=== PATIENT | male | born 1950 | race Caucasian/White ===

== ENCOUNTER 2019-04-19 11:39 | Observation (INO) ==
[2019-04-19 12:51] LABS: Apearance,Urine CLEAR (Clear); Basophils % 0.4 % (0.0-0.8); Bilirubin,Urine Negative (Negative); Blood, Urine Moderate mg/dL (Negative); Eosinophils # 0.1 10*3/uL (0.0-0.87); Glucose,Urine (UA) Negative (Negative); Hematocrit 40.5 VOL% (42.0-52.0); Hemoglobin 13.5 GM/DL (14.0-18.0); Immature Granulocytes % 0.3 %; Immature Granulocytes Absolute 0.02 #; Ketones,Urine Negative (Negative); Lymphocytes # 1.6 10*3/uL (1.4-4.0); Mean Corpuscular HGB Conc 33.3 GM/DL (32-36); Mean Corpuscular Volume 92.3 FL (87-102); Mean Platelet Volume 11.9 FL (9.6-12.0); Monocytes % 7.3 % (1.7-12.7); Mucus,Urine Occasional /LPF (Occasional); Nitrite,Urine Negative (Negative); Platelet Count 124 T/CUMM (130-400); Protein,Urine Negative; RBC,Urine 4 /HPF (0-4); Red Blood Count 4.39 MC/CUMM (3.8-5.5); Red Cell Distribution Width 12.1 % (9.3-17.3); Urine Color Yellow (Yellow); Urine Specific Gravity 1.011 (1.001-1.035); Urine Urobilinogen < 2.0 EU/DL (0.2-1.0); WBC,Urine <1 /HPF (0-6); White Blood Count 6.8 T/CUMM (4-12)
[2019-04-19 12:59] LABS: INR 0.9
[2019-04-19 13:21] LABS: Albumin 3.6 G/DL (3.4-5.0); Bilirubin,Total 0.7 MG/DL (0.2-1.0); Calcium 9.1 MG/DL (8.5-10.1); Osmolality,Calculated 279.4 MOS/KG (273-304)
[2019-04-19] MEDS ORDERED: NITROGLYCERIN 2% OINT 1 INCH/GM PACK TOP STA (14:55)
[2019-04-19] MEDS ORDERED: MORPHINE 4 MG/1 ML VIAL IV STA (14:55)
[2019-04-19] MEDS ORDERED: ASPIRIN 325 MG TABLET PO STA (14:55)
[2019-04-19] MEDS ORDERED: NITROGLYCERIN SL 0.4 MG TABLET SL PRN (14:55)
[2019-04-19] MEDS ORDERED: MAGNESIUM SULF RIDER 2 GM in PREMIX 1 EACH IV PRN (16:16)
[2019-04-19] MEDS ORDERED: ZALEPLON 5 MG CAPSULE PO PRN (16:16)
[2019-04-19] MEDS ORDERED: DEXTROSE 10% 250 ML BAG IV PRN (16:16)
[2019-04-19] MEDS ORDERED: ONDANSETRON 4 MG/2 ML VIAL IV PRN (16:16)
[2019-04-19] MEDS ORDERED: MAGNESIUM SULF RIDER 4 GM in PREMIX 1 EACH IV PRN (16:16)
[2019-04-19] MEDS ORDERED: MORPHINE 4 MG/1 ML VIAL IV PRN (16:16)
[2019-04-19] MEDS ORDERED: GLUCAGON 1 MG VIAL IM PRN (16:16)
[2019-04-19] MEDS ORDERED: DOCUSATE SODIUM 100 MG CAPSULE PO PRN (16:16)
[2019-04-19] MEDS ORDERED: oxyCODONE/ACETAMINOPHEN 5-325 MG TABLET PO PRN (16:46)
[2019-04-19] MEDS: INSULIN LISPRO 100 UNIT/ML SUBCUT SCH ×2 (17:33→21:30)
[2019-04-19] MEDS ORDERED: INFLUENZA VIRUS VACCINE 0.5 ML SYRINGE IM ONE (17:45)
[2019-04-19] MEDS: SODIUM CHLORIDE 0.45% 1,000 ML IV SCH (18:06)
[2019-04-19] MEDS: ENOXAPARIN 80 MG/0.8 ML SYRINGE SUBCUT SCH (18:07)
[2019-04-19] MEDS ORDERED: carvediloL 12.5 MG TABLET PO SCH (19:00)
[2019-04-19] MEDS ORDERED: SERTRALINE 100 MG TABLET PO SCH (21:00)
[2019-04-19] MEDS ORDERED: MONTELUKAST 10 MG TABLET PO SCH (21:00)
[2019-04-19] MEDS: NITROGLYCERIN 2% OINT 1 INCH/GM PACK TOP SCH (21:27)
[2019-04-19] MEDS: ISOSORBIDE MONONITRATE 60 MG TABLET PO SCH (21:27)
[2019-04-20 00:49] LABS: Apearance,Urine CLEAR (Clear); Bilirubin,Urine Negative (Negative); Blood, Urine Moderate mg/dL (Negative); Glucose,Urine (UA) Negative (Negative); Hyaline Casts,Urine 1 /LPF (0-3); Ketones,Urine Negative (Negative); Mucus,Urine Occasional /LPF (Occasional); Nitrite,Urine Negative (Negative); Protein,Urine Negative; RBC,Urine 4 /HPF (0-4); Sperm,Urine Few /HPF (Negative); Urine Color Straw (Yellow); Urine Specific Gravity 1.009 (1.001-1.035); Urine Urobilinogen < 2.0 EU/DL (0.2-1.0)
[2019-04-20] MEDS: SODIUM CHLORIDE 0.45% 1,000 ML IV SCH ×2 (02:41→14:41)
[2019-04-20 05:06] LABS: Basophils % 0.6 % (0.0-0.8); Eosinophils # 0.2 10*3/uL (0.0-0.87); Eosinophils % 3.3 % (0.00-10.9); Hematocrit 37.7 VOL% (42.0-52.0); Hemoglobin 12.4 GM/DL (14.0-18.0); Immature Granulocytes % 0.4 %; Immature Granulocytes Absolute 0.02 #; Lymphocytes # 1.6 10*3/uL (1.4-4.0); Lymphocytes % 31.5 % (21.2-54.2); Mean Corpuscular HGB Conc 32.9 GM/DL (32-36); Mean Corpuscular Volume 93.8 FL (87-102); Mean Platelet Volume 11.5 FL (9.6-12.0); Neutrophils % 54.2 % (38.7-73.9); Platelet Count 111 T/CUMM (130-400); Red Blood Count 4.02 MC/CUMM (3.8-5.5); Red Cell Distribution Width 12.3 % (9.3-17.3); White Blood Count 5.2 T/CUMM (4-12)
[2019-04-20 05:25] LABS: Risk Ratio 3.67; VLDL CHOLESTEROL 28.6 MG/DL
[2019-04-20] MEDS: ENOXAPARIN 80 MG/0.8 ML SYRINGE SUBCUT SCH (06:02)
[2019-04-20] MEDS ORDERED: ENOXAPARIN 40 MG/0.4 ML SYRINGE SUBCUT SCH (08:30)
[2019-04-20] MEDS ORDERED: CLOPIDOGREL 75 MG TABLET PO SCH (09:00)
[2019-04-20] MEDS ORDERED: DIGOXIN 0.125 MG TABLET PO SCH (09:00)
[2019-04-20] MEDS ORDERED: POTASSIUM CHLORIDE 10 MEQ TABLET PO SCH (09:00)
[2019-04-20] MEDS ORDERED: ASPIRIN 325 MG TABLET PO SCH (09:00)
[2019-04-20] MEDS ORDERED: allopurinoL 300 MG TABLET PO SCH (09:00)
[2019-04-20] MEDS ORDERED: carvediloL 12.5 MG TABLET PO SCH (09:00)
[2019-04-20] MEDS ORDERED: metFORMIN 500 MG TABLET PO SCH (09:00)
[2019-04-20] MEDS ORDERED: amLODIPine 5 MG TABLET PO SCH (09:00)
[2019-04-20] MEDS: INSULIN LISPRO 100 UNIT/ML SUBCUT SCH ×3 (09:08→16:27)
[2019-04-20] MEDS: ISOSORBIDE MONONITRATE 60 MG TABLET PO SCH (10:22)
[2019-04-20] MEDS: NITROGLYCERIN 2% OINT 1 INCH/GM PACK TOP SCH (10:25)
[2019-04-20] MEDS ORDERED: diphenhydrAMINE CAP 25 MG CAPSULE PO PRN (12:53)
[2019-04-20] MEDS ORDERED: MAGNESIUM HYDROXIDE SUSP 30 ML UDCUP PO PRN (12:53)
[2019-04-20 16:33] VITALS: BP 149/76
[2019-04-20] MEDS ORDERED: SIMVASTATIN 20 MG TABLET PO SCH (21:00)
== END 2019-04-20 17:00 | disposition home or self-care (01) ==
LOC: N.EDINP 11:39 → N.ED 11:39 → N.TELES 16:34
PROVIDERS: ADMIT Internal Medicine Interventional Cardiology; ATTEND Internal Medicine Interventional Cardiology